=== PATIENT | female | born 1995 | race Caucasian/White ===

== ENCOUNTER 2019-05-13 17:52 | Emergency (ER) | payer OTHER, SELFPAY ==
[2019-05-13 18:03] VITALS: BP 157/95; PULSE 121; RESP 20; TEMP 37.4; O2SAT 95
--- NOTE | 2019-05-13 18:05 | ED.URI ---
HPI - URI/Sore Throat General Chief Complaint: Upper Respiratory Infection Stated Complaint: fever/body aches/cough Time Seen by Provider: 05/13/19 18:05 Source: patient and RN notes reviewed Mode of arrival: ambulatory Limitations: no limitations History of Present Illness HPI Narrative: A 23 y/o female, who is a nonsmoker and nondrinker, presents to the with multiple worsening URI symptoms for the past 5 days. She states that she has been having a fever, sore throat, body aches, nasal congestion, ear ache, and a cough for the past 5 days. She reports that she went to [facility] 3 days ago and tested negative for flu and strep. She notes that today she developed N/V/D so she decided to be reevaluated. MD elicited complaint: other (Multple) Onset (ago): day(s) (5) Consistency: progressively worsening Associated symptoms: fever, nasal congestion, sore throat, cough, nausea, vomiting, diarrhea and other (body aches, ear ache) Related Data Allergies Allergy/AdvReac Type Severity Reaction Status Date / Time amoxicillin Allergy Unknown Nausea Verified 04/06/17 21:20 cephalexin Allergy Unknown Skin Verified 04/06/17 21:20 Reaction Review of Systems Review of Systems: Narrative: The patient has been informed that they may have pre-hypertension or Hypertension based on a BP reading in the department. I recommend that the patient call the primary care provider listed on their discharge instructions or a physician of their choice this week to arrange follow up for further evaluation of possible pre-hypertension or Hypertension General/Constitutional: No weight loss, POSS fever Eyes: N0: Redness,discharge Ears/Nose/Throat: No: Epistaxis,ear discharge Respiratory: Denies: Hemoptysis Gastrointestinal: + Vomiting, Bleeding-rectal Neurologic: No Focal Weakness,Sz Hematologic: Denies: Petechiae/Purpura PMFSH Past Medical History Medical History (Updated 05/13/19 @ 18:32 by All Doll MD) History of pneumonia Surgical History Surgical History (Updated 05/13/19 @ 18:08 by Antonio Aguilera) No history of previous surgery Social History Social History (Updated 05/13/19 @ 18:08 by Antonio Aguilera) Smoking status: Never smoker Gender identity (if verbalized by the patient): Female Comments At time of signature, agree with nursing past medical, surgical, social and family history. There is no relevant family history pertinent to the presenting complaint Exam Narrative: Exam Narrative: General Appearance: Well appearing, Conjunctiva clear Ears: Auditory canal normal, TM normal Nose: Rhinorrhea, Mucousal erythema Throat: MM moist, Uvula midline, Pharyngeal erythema Supple, No adenopathy Respiratory: No respiratory distress, Breath sounds equal, Clear to auscultation Cardiovascular: RRR, No JVD Musculoskeletal: Non tender, Warm, Dry Neurological: A&O x3, , Normal affect Course Vital Signs Vital signs: Vital Signs Temperature 99.3 F 05/13/19 18:03 Pulse Rate 121 H 05/13/19 18:03 Respiratory Rate 20 05/13/19 18:03 Blood Pressure 157/95 H 05/13/19 18:03 Pulse Oximetry 95 05/13/19 18:03 Temperature 99.3 F 05/13/19 18:03 Pulse Rate 121 H 05/13/19 18:03 Respiratory Rate 20 05/13/19 18:03 Blood Pressure 157/95 H 05/13/19 18:03 Pulse Oximetry 95 05/13/19 18:03 Discharge Plan Discharge Clinical Impression: Influenza B Patient Disposition: Home, Self-Care Condition: Stable Instructions: Influenza Vaccine (ED) Prescriptions: New ipratropium bromide 0.03 % spray,non-aerosol 2 spray NASAL BID Qty: 30 RF: 0 oseltamivir [Tamiflu] 75 mg capsule 75 mg PO Q12H 5 Days Qty: 10 RF: 0 benzonatate [Tessalon Perles] 100 mg capsule 100 mg PO TID Qty: 20 RF: 1 codeine-guaifenesin 10-100 mg/5 mL liquid 7.5 ml PO Q6H PRN (Reason: cough) Qty: 118 RF: 0 Interventions: Discharge Disposition Last Done: 05/13/19 18:34 Follow-up/Referrals:
== END 2019-05-13 18:35 | disposition home or self-care (01) ==
PROVIDERS: Emergency Provider Emergency Medicine
DX: J10.1 Influenza due to other identified influenza virus with other respiratory manifestations (principal)
CPT/HCPCS: 99203; G0463

== ENCOUNTER 2023-06-06 16:20 | Emergency (ER) | payer SELFPAY ==
--- NOTE | 2023-06-06 16:25 | ED.URI ---
HPI - URI/Sore Throat General Chief Complaint: Upper Respiratory Infection Stated Complaint: sorethroat Time Seen by Provider: 06/06/23 16:44 Source: patient and RN notes reviewed Mode of arrival: ambulatory Limitations: no limitations History of Present Illness HPI Narrative: Re 7-year-old female with concern for for 2 days. Reports she has strep 1 around her classroom. She has not taken any medications for her symptoms. She reports postnasal drainage. MD elicited complaint: sore throat Related Data Home Medications Medication Instructions Recorded Confirmed hydroxyzine HCl 25 mg tablet 25 mg PO 07/19/22 escitalopram oxalate 5 mg tablet mg 06/06/23 Allergies Allergy/AdvReac Type Severity Reaction Status Date / Time cephalexin Allergy Mild Skin Verified 06/06/23 16:44 Reaction amoxicillin AdvReac Intermediate Nausea Verified 06/06/23 16:44 Review of Systems Review of Systems: CONSTITUTIONAL: Denies malaise, chills, sweats, or fever. EYES: Denies visual changes, redness, or discharge. ENT: Reports rhinorrhea, postnasal drainage, sore throat. Congestion, sinus pain, otalgia CARDIOVASCULAR: Denies chest pain, palpitations, or edema. RESPIRATORY: Denies cough. Denies dyspnea. GASTROINTESTINAL: Denies abdominal pain, nausea, vomiting, diarrhea SKIN: Denies rash or itching. MUSCULOSKELETAL: Denies myalgia. NEUROLOGIC: Denies headache. All systems reviewed & are unremarkable except as noted in HPI and below PMFSH Past Medical History Medical History Anxiety Encounter for removal of intrauterine contraceptive device History of pneumonia Surgical History Surgical History No history of previous surgery Family History Family History Mother No problems noted. Grandparent Breast cancer Father Hypertension Social History Social History Smoking status: Never smoker Gender identity (if verbalized by the patient): Female Comments At time of signature, agree with nursing past medical, surgical, social and family history. There is no relevant family history pertinent to the presenting complaint Exam Narrative: GENERAL: Well-appearing, well-nourished, and in no acute distress. HEAD: Normocephalic EYES: PERRLA, conjunctivae clear ENT: Nares clear. Mucous membranes moist. TM pearly amato with dull light reflex bilaterally; no tragal tenderness. Oropharynx not erythematous without lesions. Tonsils not enlarged and without exudate, no drooling, no hoarseness, no trismus, uvula midline. NECK: Supple. No lymphadenopathy CHEST: Clear to auscultation, breath sounds equal. No wheezing, rhonchi, rales, or stridor. No respiratory distress, speaks in full sentences. HEART: Regular rate and rhythm. No murmur heard. SKIN: Warm, dry, no rash. NEURO: Alert and oriented x3. PSYCH: Normal mood and affect Course Course Emergency Course: Patient is aware of diagnosis, understands and agrees to treatment plan. Anticipatory guidance given. Patient agrees to follow-up as directed and is aware of reasons to seek care at the emergency department. Portions of this record may have been created with voice recognition software Level of Care: Express Care Visit Vital Signs Vital signs: Reviewed. MDM - URI/Sore Throat MDM Narrative Medical decision making narrative: Differential diagnosis considered: Culver virus, strep pharyngitis, allergic rhinitis, upper respiratory tract infection, sinusitis, rhinosinusitis, nasopharyngitis. viral pharyngitis, otitis media, otitis externa, pneumonia, bronchitis, viral cough syndrome, viral syndrome, and influenza. Exam findings show no acute concerns or changes; patient is non-toxic appearing and is in no distress. Patient is appropriate for outpatient treatm
[2023-06-06 16:38] VITALS: BP 139/96; PULSE 112; RESP 16; TEMP 36.7; O2SAT 100
== END 2023-06-06 17:13 | disposition home or self-care (01) ==
PROVIDERS: Emergency Provider Nurse Practitioner
DX: J06.9 Acute upper respiratory infection, unspecified (principal)
CPT/HCPCS: 87081; 87880; 99213; G0463

== ENCOUNTER 2024-07-31 09:46 | Emergency (ER) | payer OTHER, SELFPAY ==
[2024-07-31 09:54] VITALS: BP 134/106; PULSE 94; RESP 18; TEMP 36.4; O2SAT 100
[2024-07-31 10:05] LABS: EDUAAPPEAR Cloudy; EDUABILI 3+ (Negative); EDUABLOOD Trace (Negative); EDUACOLOR1 Amber; EDUAGLUCOSE Trace (Negative); EDUAKETONE 2+ (Negative); EDUALEUKO 3+ (Negative); EDUANITRATE Positive (Negative); EDUAPH 5.5; EDUAPROTEIN 2+ (Negative)
--- NOTE | 2024-07-31 10:05 | ED_ITS ---
HPI - Female Genitourinary General Chief complaint: Urogenital-Female Stated complaint: Bladder Infection Time Seen by Provider: 07/31/24 10:12 Source: patient and RN notes reviewed Mode of arrival: ambulatory Limitations: no limitations History of Present Illness HPI Narrative: 28 y/o female presented for c/o bladder pressure and decreased urinary output for about 5 days, worsening over the last 2 days. Endorses vomiting last night and this morning. Says she has a light trickle of urination and does not feel she completely empties her bladder. Took AZO and then had multiple urination throughout the night, and feels she has since fully emptied the bladder. Endorses suprapubic dull pressure, rates 3/10. Denies hematuria, nausea, vomiting, abdominal pain, flank pain, constipation, diarrhea, fevers or chills. Denies vaginal discharge, itching, or concern for std. Endorses severe anxiety and elevated bp, for which she is seeing cardiology today. Related Data Home Medications ?Medication ?Instructions ?Recorded ?Confirmed ?Last Taken ?Type escitalopram oxalate 5 mg tablet mg 06/06/23 Unknown History amlodipine 5 mg tablet mg 07/31/24 Unknown History clonidine HCl 0.1 mg tablet mg 07/31/24 Unknown History nebivolol 5 mg tablet mg 07/31/24 Unknown History Allergies Allergy/AdvReac Type Severity Reaction Status Date / Time cephalexin Allergy Mild Skin Verified 07/31/24 09:59 Reaction amoxicillin AdvReac Intermediate Nausea Verified 07/31/24 09:59 Review of Systems Review of Systems: CONSTITUTIONAL: Denies body aches, fever, chills, or sweats. CARDIOVASCULAR: Denies chest pain, palpitations, or edema. RESPIRATORY: Denies cough or dyspnea. GASTROINTESTINAL: Denies abdominal pain, nausea, vomiting, or diarrhea. GENITOURINARY: Reports decreased frequency, urgency, hematuria, flank pain, discharge SKIN: Denies rash, itching, or wounds. MUSCULOSKELETAL: Denies back pain or myalgia. [facility] Past Medical History Medical History Anxiety Encounter for removal of intrauterine contraceptive device History of pneumonia Surgical History Surgical History No history of previous surgery Family History Family History Mother No problems noted. Grandparent Breast cancer Father Hypertension Social History Social History Smoking status: Never smoker Gender identity (if verbalized by the patient): Female Comments At time of signature, I have reviewed and agree with nursing past medical, surgical, social and family history unless otherwise noted. Please see nursing chart for further information. There is no relevant family history pertinent to the presenting complaint Exam Narrative: GENERAL: Well-appearing and in no acute distress. ENT: Mucous membranes pink and moist. NECK: Normal AROM. Supple. CHEST: No respiratory distress. Clear to auscultation. HEART: Regular rate and rhythm. ABDOMEN: Soft, nontender, nondistended, normal active bowel sounds. No CVA tenderness SKIN: Warm, dry, no rash. NEURO: No focal deficits. Alert and oriented x3. Gait steady. PSYCH: Anxious Course Course Emergency Course: Patient is aware of diagnosis, understands and agrees to treatment plan. Anticipatory guidance given. Patient agrees to follow-up as directed and is aware of reasons to seek care at the emergency department. Portions of this record may have been created with voice recognition software Level of Care: Express Care Visit Vital Signs Vital signs: Vital Signs Temperature 97.6 F 07/31/24 09:54 Pulse Rate 94 07/31/24 09:54 Respiratory Rate 18 07/31/24 09:54 Blood Pressure 134/106 H 07/31/24 09:54 Pulse Oximetry 100 07/31/24 09:54 Oxygen Delivery Room Air 07/31/24 09:54 Temperature 97.6 F 07/31/24 09:54 Pulse Rate 94 07/31/24 09:54 Respiratory Rate 18 07/31/24 09:54 Blood Pressure 134/106 H 07/31/24 09:54 Pulse Oximetry 100 07/31/24 09:54 Oxygen Delivery Room Air 07/31/24 09:54 Reviewed MDM - Female Genitourinary MDM Narrative Medical decision making narrative: Discussed physical exam findings, urine will be cultured. Advised supportive measures and signs/symptoms to go to the ER. Pt is appropriate for outpt treatment and f/u. Differential Diagnosis Differential diagnosis: Likely urinary tract infection, vaginitis and cystitis Discharge Plan Discharge Clinical Impression: Urinary tract infection Patient Disposition: Home Condition: Stable Instructions: Antibiotic Form, Urinary Tract Infection in Women (ED) Additional Instructions: Your blood pressure reading was elevated (above 120/80) please follow-up with your primary care provider for further evaluation and management. If you develop worsening Blood Pressure symptoms, (headache, vision changes, dizziness, vomiting, chest pain, etc) go to the ER. Take the antibiotic as prescribed The urine will be sent of for a culture to identify what type of bacteria is causing your infection. If the culture shows that the antibiotic will not get rid of your infection, you will be notified and a new antibiotic will be called in for you. Increase water intake you will need to follow up with your PCP, call to schedule an appointment. Go to the ER for any worsening symptoms or concerns Patient Language: Greenlandic Prescriptions: New nitrofurantoin monohyd/m-cryst [Macrobid] 100 mg capsule 100 mg PO Q12H 5 Days Qty: 10 0RF Rx Instructions: must administer with a meal/food No Action clonidine HCl 0.1 mg tablet amlodipine 5 mg tablet nebivolol 5 mg tablet escitalopram oxalate 5 mg tablet Follow-up/Referrals: PHYSICIAN,LADLE LINER HELPER [Primary Care Provider] - Time of Disposition: 10:17
[2024-07-31 10:22] VITALS: BP 113/80; PULSE 95; O2SAT 100
--- OUTSIDE RECORDS SUMMARY | 2024-07-31 10:22 | XMS_ITS | Clinical Summary ---
Author Organization [facility] [place] Address [address] [place] [id number] Care Team Providers Care Nail Assembly Machine Operator Name Role Phone Ling Hayes NP Primary Care Provider [phone] Allergies Active Allergy Reactions Criticality Noted Date Comments Cephalexin Rash Low 11/17/2012 Medications levonorgestrel (MIRENA) 20 MCG/DAY IUD 1 Intra Uterine Device by Intrauterine route once. 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 /Has Holter monitor put on yesterday. ) 06/05/2024 Travel from Last 3 Months Social History Tobacco Use Types Packs/Day Years Used Date Smoking Tobacco: Never Passive Smoke Exposure: Past Smokeless Tobacco: Never Tobacco Cessation:Counseling Given: No Alcohol Use Standard Drinks/Week Comments Yes 11.7 (1 standard drink = 0.6 oz pure alcohol) PHQ-2 Answer Date Recorded Patient Health Questionnaire-2 Score 2 06/21/2022 Comments No Sex and Gender Information Value Date Recorded Sex Assigned at Not on file Legal Sex Female 1:17 PM LEAD SOLUTIONS ARCHITECT Gender Identity Not on file Sexual Orientation Not on file Last Filed Vital Signs Vital Sign Reading Time Taken Comments Blood Pressure 158/113 06/05/2024 7:48 AM LEAD SOLUTIONS ARCHITECT Pulse 83 06/05/2024 7:48 AM LEAD SOLUTIONS ARCHITECT Temperature 36.6 C (97.9 F) 07/12/2022 3:46 PM CDT Respiratory Rate 18 07/12/2022 3:46 PM CDT Oxygen Saturation 99% 06/05/2024 7:48 AM LEAD SOLUTIONS ARCHITECT Inhaled Oxygen Concentration - - Weight 59.4 kg (131 lb) 06/05/2024 7:48 AM LEAD SOLUTIONS ARCHITECT Height 157.5 cm (5' 2 ) 06/05/2024 7:48 AM LEAD SOLUTIONS ARCHITECT Body Mass Index 23.96 06/05/2024 7:48 AM LEAD SOLUTIONS ARCHITECT Plan of Treatment Health Maintenance Due Date Last Done Comments Cervical Cancer Screening Pa p Smear (Age 30 to 64) Every 3 Years 1993 DTaP, Tdap and Td Vaccines ( 1 - Tdap) 2012 Hepatitis B Vaccines (1 of 3 - 19+ 3-dose series) 2012 Annual Physical 06/22/2023 06/21/2022 COVID-19 Vaccine ( - 2023-2 5 season) 2023 04/09/2021, 06/17/2020, 05/29/2020 Cervical Cancer Screening Pa p with HPV Testing (Age 30 to 64) Every 5 Years 12/31/2023 Cervical Cancer Screening wi HPV 12/31/2023 PHQ-2 (Physician [place]) 04/02/2024 Hepatitis C Completed 06/29/2022 HPV Vaccines Aged Out No longer eligi ble based on patient's age to complete this topic Meningococcal B Vaccine Aged Out No l onger eligible based on patient's age to complete this topic Meningococcal Vaccine Aged Out No [place] wallace eligible based on patient's age to complete this topic Pneumococcal Vaccine: Pediatrics (0 to 5 Years) and At-Risk Patients (6 to 49 Years) Aged Out No longer eligible b ased on patient's age to complete this topic RSV Immunizations Under 20 Months Aged Out No longer eligible b ased on patient's age to complete this topic Procedures Procedure Name Priority Date/Time Associated Diagnosis Comments HEPATITIS C ANTIBODY Routine 06/29/2022 8:57 AM CDT Need for hepatitis C screening test from Last 3 Months or Most Recently Relevant to Health Maintenance Results * HEPATITIS C ANTIBODY (06/29/2022 8:57 AM CDT) HEPATITIS C AB NON-REACTI VE NON-REACT CHRISTIN 06/29/2022 6:16 PM CDT [facility] Comment: ANTIBODIES TO HCV NOT DETECTED. DOES NOT EXCLUDE THE POSSIBILITY OF EXPOSURE TO HCV. 06/29/2022 8:57 AM CDT Ling Hayes NP LABORATORY Final Res ult [facility] [address] [place] [address], [id number] from Last 3 Months or Most Recently Relevant to Health Maintenance Insurance [facility] Care Teams Nail Assembly Machine Operator Relationship Specialty Start Date End Date Lnig Hayes NP [id number] [address] PCP - General NURSE PRACTITIONER 06/05/22
--- OUTSIDE RECORDS SUMMARY | 2024-07-31 10:22 | XMS_ITS | Clinical Summary ---
Author Organization [facility] Address [address] [place] [address] Care Team Providers Care Rubber Engraver Name Role Phone Julio Cesar Toussaint MD Primary Care Provider [phone] Julio Cesar Toussaint MD Unavailable [phone] Source Comments [facility],non-owned Affiliates and Associated Physician Practices is amultiple site organization consisting of ambulatory clinics and hospital sitesin [place], [place], [place] and [place]. This disclosure is being madepursuant to the Care Everywhere program and may not contain all information available regarding this patient. Last updated 17.[facility] Allergies Active Allergy Reactions Criticality Noted Date Comments Cephalexin Rash Low 11/17/2012 Medications * Be aware that medications may not be up to date on this document. Alwaysverify current medications with the patient. 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 Gender Identity Not on file Sexual Orientation Not on file Last Filed Vital Signs Vital Sign Reading Time Taken Comments Blood Pressure 122/80 05/11/2019 2:53 PM HIGH SCHOOL COMBINATION TEACHER Pulse 112 05/11/2019 2:53 PM HIGH SCHOOL COMBINATION TEACHER Temperature 37.5 C (99.5 F) 05/11/2019 2:53 PM HIGH SCHOOL COMBINATION TEACHER Respiratory Rate 16 05/11/2019 2:53 PM HIGH SCHOOL COMBINATION TEACHER Oxygen Saturation 98% 05/11/2019 2:53 PM HIGH SCHOOL COMBINATION TEACHER Inhaled Oxygen Concentration - - Weight 70.3 kg (155 lb) 05/11/2019 2:53 PM HIGH SCHOOL COMBINATION TEACHER Height 157.5 cm (5' 2 ) 05/11/2019 2:53 PM HIGH SCHOOL COMBINATION TEACHER Body Mass Index 28.35 05/11/2019 2:53 PM HIGH SCHOOL COMBINATION TEACHER Plan of Treatment Health Maintenance Due Date Last Done Comments HIV SCREENING 2008 HEPATITIS C SCREENING 12/26/2011 DTAP/TDAP/TD VACCINES (1 - Tdap) 2012 HEPATITIS B VACCINE (1 of 3 - 19+ 3-dose series) 2012 COVID-19 VACCINE (1 - 2023-2 5 season) 2023 DEPRESSION SCREENING 04/02/2024 INFLUENZA VACCINE (Season Ended) 2024 02/20/2017, 03/11/2009, 02/22/2009 ZOSTER VACCINE (1 of 2) 12/31/2043 HIB VACCINE Aged Out No longer eligi ble based on patient's age to complete this topic HPV VACCINE Aged Out No longer eligi ble based on patient's age to complete this topic MENINGOCOCCAL (Group B) VACCINE SHARED DECISION-MAKING Aged Out No longer eligible based on patient's age to complete this topic MENINGOCOCCAL GROUPS A/C/Y/W VACCINE Aged Out No longer eligible b ased on patient's age to complete this topic PNEUMOCOCCAL VACCINE Aged Out No long er eligible based on patient's age to complete this topic Insurance [facility] Care Teams Rubber Engraver Relationship Specialty Start Date End Date Julio Cesar Toussaint MD PCP - General Family Medicine 05/03/17 Julio Cesar Toussaint MD Family Medicine 05/03/17
== END 2024-07-31 10:22 | disposition home or self-care (01) ==
PROVIDERS: Emergency Provider Nurse Practitioner Family
DX: N39.0 Urinary tract infection, site not specified (principal); Z79.899 Other long term (current) drug therapy
CPT/HCPCS: 81003; 87086; 99213; G0463